=== PATIENT | female | born 1975 | race Caucasian/White ===

== ENCOUNTER 2017-11-08 15:16 | Emergency (ER) | payer SELFPAY ==
[~2017-11-08] VITALS: Ht 162.6 cm; Wt 82.0 kg
[2017-11-08 16:19] VITALS: BP 124/80
== END 2017-11-08 19:01 | disposition home or self-care (01) ==
LOC: ER 16:30
DX: L03.211 Cellulitis of face (principal)
CPT/HCPCS: 99283